=== PATIENT | male | born 1980 | race Caucasian/White ===

== ENCOUNTER 2019-10-13 20:17 | Emergency (ER) | payer MEDICAID, OTHER ==
[~2019-10-13] VITALS: Ht 170.2 cm; Wt 85.0 kg
[2019-10-13] MEDS ORDERED: KETOROLAC 60MG/2ML VIAL IM STA (20:36)
[2019-10-13 23:05] VITALS: BP 152/80
== END 2019-10-13 23:06 | disposition home or self-care (01) ==
LOC: ER 20:17
DX: S09.8XXA Other specified injuries of head, initial encounter (principal); I16.0 Hypertensive urgency; I10 Essential (primary) hypertension; V49.9XXA Car occupant (driver) (passenger) injured in unspecified traffic accident, initial encounter; Y93.89 Activity, other specified; Y92.410 Unspecified street and highway as the place of occurrence of the external cause
CPT/HCPCS: 70450; 72125; 93005; 96372; 99285; J1885